=== PATIENT | female | born 1955 | race Caucasian/White ===

== ENCOUNTER 2025-01-14 05:55 | Day surgery (SDC) | payer MEDICARE, SELFPAY ==
[2025-01-10 09:00] LABS: Hematocrit 40.5 % (37.0-47.0); Hemoglobin 13.2 g/dL (12.0-16.0); Mean Corp Hgb Conc. 32.6 g/dL (33.0-37.0); Mean Corpuscular Volume 90.4 fL (81.0-99.0); Platelet Count 341 10^3/uL (130-400); Red Cell Dist. Width 13.1 % (11.5-14.5)
[2025-01-10 10:50] LABS: Blood Urea Nitrogen 13 mg/dl (7-17); Calcium 9.7 mg/dl (8.4-10.2); Carbon Dioxide 29 mmol/L (22-30); Chloride 103 mmol/L (98-107); Glucose 132 mg/dl (70-99); Potassium 5.3 mmol/L (3.5-5.1); Sodium 137 mmol/L (135-145); eGFR > 60.00
[2025-01-10 14:05] VITALS: BMI 25.6
[2025-01-14] VITALS (11 sets, daily range): BP systolic 95–133; BP diastolic 50–68; BMI 25.6
[2025-01-14] MEDS: NORMOSOL-R/PLASMALYTE-A 1000 IV (06:35)
[2025-01-14 06:44] LABS: Glucose - Point of Care 118 mg/dl (70-99)
[2025-01-14] MEDS: TRANSDERM-SCOP 1 PATCH TRANSDERM (06:47)
[2025-01-14 08:51] LABS: Glucose - Point of Care 159 mg/dl (70-99)
[2025-01-14] MEDS: ZOFRAN 4 MG IV (09:03)
[2025-01-14] MEDS: DILAUDID 0.25 MG IV (09:04)
== END 2025-01-14 13:56 | disposition home or self-care (01) ==
LOC: SDS 05:55
PROVIDERS: ATTENDING PHYSICIAN Obstetrics & Gynecology; FAMILY PHYSICIAN Internal Medicine
DX: N81.3 Complete uterovaginal prolapse (principal); N39.3 Stress incontinence (female) (male); N36.42 Intrinsic sphincter deficiency (ISD)
CPT/HCPCS: 57282; 57260; 51715; 80048; 82962; 85027; 86850; 86900; 86901; 93005; L8606